=== PATIENT | female | born 1960 | race Caucasian/White ===

== ENCOUNTER 2025-04-09 08:16 | Emergency (ER) | payer BC, SELFPAY ==
[2025-04-09 08:18] VITALS: BP 126/70
--- NOTE | 2025-04-09 08:34 | ED.GENMED ---
History of Present Illness
General
Chief Complaint: DVT/Possible Blood Clot
Time Seen by Provider: 04/09/25 08:23
History of Present Illness
History of Present Illness:
64-year-old female presents to the emergency department for evaluation of swelling and discomfort to the right volar wrist that began last night. She is concerned this may have a correlation to recent colonoscopy with multiple IV sites to the
dorsum of the right hand and wrist. She has pain that travels into the thenar eminence of the hand, denies hand weakness but does have occasional tingling discomfort to the 1st, 2nd and 3rd digits. No proximal arm swelling
Review of Systems
Review of Systems
Allergies reviewed?: Yes
All Other Systems: ROS reviewed and negative except as documented in HPI and ROS
Phy Exam
Physical Exam
Physical Exam:
GEN: Well appearing, NAD, WDWN
HEENT: Oral mucosa moist, no scleral icterus
Cardiac: Regular rate
Lung: No respiratory distress, no tachypnea
MSK: Prominent rubbery swelling to the proximal volar aspect of the right wrist superficial to the flexor pollicis tendon complex, normal wrist range of motion, no muscle atrophy of the thenar eminence
Skin: Good color, no pallor or jaundice, no rashes
Neuro: AO x3, moves all extremities freely
Psych: Calm, cooperative
Course
Orders/Labs/Results
Orders:
Orders
04/09/25 08:34
CR Wrist - Right Min 3 Views Urgent
Comment:
Reason For Exam: dorsal swelling
Vital Signs
Initial and Last Documented VS:
Initial Vital Signs
Temp Pulse Resp BP Pulse Ox
97.9 F 67 19 126/70 100
04/09/25 08:18 04/09/25 08:18 04/09/25 08:18 04/09/25 08:18 04/09/25 08:18
Last Documented Vital Signs
Temp Pulse Resp BP Pulse Ox
97.9 F 67 19 126/70 100
04/09/25 08:18 04/09/25 08:18 04/09/25 08:18 04/09/25 08:18 04/09/25 08:39
MDM/Problems Addressed
MDM/Problems Addressed:
Exam consistent with acute ganglion cyst. She is reporting some compressive symptoms resulting in the pseudo carpal tunnel syndrome will recommend outpatient hand surgery follow-up, x-rays independently interpreted by me are negative for acute
osseous abnormality
*Pulse Oximetry
SaO2: 100
Oxygen Mode of Delivery: Room air
*Critical Care Note
Total Time (30-74mins, 75-104mins- exclusive of procedures): Not Applicable
ED Attending Note
-
Portions of this chart may have been created with voice recognition software.� Occasional wrong word or��sound alike� substitutions may have occurred due to the inherent limitations of voice recognition software.
Discharge Plan
Departure
Patient Disposition: Home (Routine Discharge)
Date of Disposition: 04/09/25
Time of Disposition: 08:51
Patient with high blood pressure during this ER visit?: No
Discharge Problem:
Ganglion cyst of dorsum of right wrist
Instructions: Ganglion Cyst (DC)
Referrals:
Anthony Bell MD [Active, Orthopedics]
Yaquelin Kwan MD [Family Provider, Family Practice]
Interventions
Interventions:
*Risk Screen - Suicide Last Done: 04/09/25 08:18
*General Assessment Last Done: 04/09/25 08:50
*Neglect/Abuse Screening Last Done: 04/09/25 08:18
*ED- Fall Risk Assessment Last Done: 04/09/25 08:50
*ED COVID-19 Vaccine History Last Done: 04/09/25 08:50
*Nursing Disposition Last Done: 04/09/25 09:01
ED- Cardiac Assessment Last Done: 04/09/25 08:51
ED- Pulmonary Assessment Last Done: 04/09/25 08:51
ED-Peripheral Vascular Assessment Last Done: 04/09/25 08:51
ED-Skin Assessment Last Done: 04/09/25 08:51
Discharge Date and Time
Print Language: MACEDONIAN
[2025-04-09 08:50] VITALS: BMI 22.9
== END 2025-04-09 09:01 | disposition home or self-care (01) ==
LOC: EMR 08:16
PROVIDERS: EMERGENCY PHYSICIAN Emergency Medicine; FAMILY PHYSICIAN Family Medicine
DX: M67.431 Ganglion, right wrist (principal)
CPT/HCPCS: 99283; 73110